=== PATIENT | female | born 1990 | race Caucasian/White ===

== ENCOUNTER 2025-04-02 20:39 | Emergency (ER) | payer OTHER, SELFPAY ==
[2025-04-02 20:44] VITALS: BP 135/80
--- NOTE | 2025-04-02 21:31 | ED.GENMED ---
History of Present Illness
General
Chief Complaint: Back Pain
Source: patient
Exam Limitations: none
Time Seen by Provider: 04/02/25 21:18
History of Present Illness
History of Present Illness:
34-year-old female low back pain bilaterally more the right side x 2 weeks. Much worse last few days. No distal numbness tingling or weakness. No fever or chills. No obvious urinary symptoms. Very positional in nature. Patient has an allergy
to Naprosyn but states she has taken Celebrex in the past and can take this without issues.
Past History
Past History
ED Past Medical History: Asthma and Other (Hyperemesis gravidarum)
ED Past Surgical History: Other (Endoscopy)
Social History
Tobacco: Non-smoker
Alcohol: None
Drug: None
Personal:
Living: with family
Employment: Employed ([employer])
Family History
Family History: Other (n.c)
Review of Systems
Review of Systems
All Other Systems: Not applicable
Constitutional: Denies fever
ABD/GI: Denies abdominal pain or diarrhea
: Denies dysuria or frequency
Phy Exam
Physical Exam
Physical Exam:
GENERAL: Alert and oriented in no apparent distress. Initially sitting in the chair nontoxic. Able to stand and ambulate.
EYE: Orbits normal.
NECK: Supple CARDIAC: Regular rate and rhythm without any obvious murmurs.
LUNGS: Clear breath sounds,normal
ABDOMEN: Soft, mild left-sided tenderness. No rebound or guarding no mass or hernia. No CVA tenderness. No pain with straight leg raising. Able to stand on toes.
NEUROLOGICAL: Alert and oriented , grossly non-focal
SKIN: Warm and dry, no rash or lesion, no discoloration, skin intact.
MUSCULOSKELETAL: No edema,no deformity.Good color able to flex at the hip but with discomfort
PSYCH: Normal and appropriate interaction.
Course
Orders/Labs/Results
Orders:
Orders
04/02/25 21:30
Test Result ONCE
US Abdomen Complete/Upper Urgent
Comment:
Reason For Exam: Left-sided abdominal pain/back pain
04/02/25 21:31
Prednisone [Deltasone] 50 mg PO NOW STA
04/02/25 21:52
HCG, Urine Qualitative Screen Urgent
Date Specimen was Collected: 04/02/25
Time Specimen was Collected: 21:47
Urinalysis Reflex To Culture Urgent
Date Specimen was Collected: 04/02/25
Time Specimen was Collected: 21:47
Urine Microscopic Reflex Cult Urgent
Urine Culture Urgent
RU Source: U
Specimen Description:
Date Specimen was Collected: 04/02/25
Time Specimen was Collected: 21:47
04/02/25 23:56
Nitrofurantoin Monohydrate [Macrobid] 100 mg PO NOW STA
Abnormal Lab Results
04/02/25
21:52
Ur Occult Blood Reflex 2+ A
(Negative)
Urine Nitrite (Reflex) Positive A
(Negative)
Leukocyte Esterase Rfl 3+ A
(Negative)
Urine Bacteria (Reflex) Moderate A
(Negative)
Urine Albumin (Reflex) 1+ A
(Neg - Trace)
Vital Signs
Initial and Last Documented VS:
Initial Vital Signs
Temp Pulse Resp BP Pulse Ox
97.7 F 88 20 135/80 99
04/02/25 20:44 04/02/25 20:44 04/02/25 20:44 04/02/25 20:44 04/02/25 20:44
Last Documented Vital Signs
Temp Pulse Resp BP Pulse Ox
97.7 F 88 20 135/80 99
04/02/25 20:44 04/02/25 20:44 04/02/25 20:44 04/02/25 20:44 04/02/25 21:33
MDM/Problems Addressed
Differential Diagnosis Includes:
Most suspicious for musculoskeletal back pain. Doubt kidney stone kidney infection or acute abdominal process. However will check ultrasound for hydronephrosis also check urine. Patient has been taking Tylenol. She does not want narcotics which
I applaud her for. She however states she is absolutely sure she can take Celebrex and has taken in the past.
*Radiology
Radiology exam reviewed: radiology read reviewed (Negative ultrasound)
*Pulse Oximetry
SaO2: 99
Oxygen Mode of Delivery: Room air
Patient hypoxic: no
*Critical Care Note
Total Time (30-74mins, 75-104mins- exclusive of procedures): Not Applicable
Data Reviewed
Review of Other/Old Records Reveals: Labs and Testing
Update Note
Update Note:
Very low suspicion for UTI. Contaminated urine. However positive leukocyte positive nitrate. Will cover with Macrodantin. Her back pain clinically is very musculoskeletal in nature. No acute weakness in the lower extremities. No incontinence.
Patient is absolutely sure she can take Celebrex.
ED Attending Note
-
Portions of this chart may have been created with voice recognition software.� Occasional wrong word or��sound alike� substitutions may have occurred due to the inherent limitations of voice recognition software.
Discharge Plan
Departure
Patient Disposition: Home (Routine Discharge)
Date of Disposition: 04/02/25
Time of Disposition: 23:57
Patient with high blood pressure during this ER visit?: Yes
Discharge Problem:
Low back pain, Possible UTI
Instructions: Urinary tract infections in adults, Low Back Pain (DC), BLOOD PRESSURE
Prescriptions:
New
celecoxib [Celebrex] 100 mg capsule
100 mg PO DAILY Qty: 14 0RF
nitrofurantoin monohyd/m-cryst [Macrobid] 100 mg capsule
100 mg PO BID 5 Days Qty: 10 0RF
No Action
nitrofurantoin monohyd/m-cryst 100 MG capsule
100 mg PO BID Qty: 14 0RF
ondansetron 4 MG tablet,disintegrating
4 mg PO TIDPRN PRN (Reason: nausea/vomiting) Qty: 16 0RF
albuterol sulfate 1 PUFF HFA aerosol inhaler
2 puff inhalation R Q4HPRN PRN (Reason: shortness of breath) Qty: 1 3RF
prednisone 50 MG tablet
50 mg PO DAILY Qty: 4 0RF
epinephrine [EpiPen] 0.3 MG/0.3/SYRINGE auto-injector
0.3 mg IM ONCE Qty: 1 0RF
methylprednisolone [Medrol (Wiliam)] 4 MG tablets,dose pack
4 tab PO . DIRECT Qty: 1 0RF
Referrals:
Lawanda Romano MD [Family Provider, Family Practice] - Follow up in 2-3 days
Interventions
Interventions:
*Risk Screen - Suicide Last Done: 04/02/25 20:44
*General Assessment Last Done: 04/02/25 20:44
*Neglect/Abuse Screening Last Done: 04/02/25 20:44
*ED- Fall Risk Assessment Last Done: 04/02/25 20:44
*ED COVID-19 Vaccine History Last Done: 04/02/25 20:44
*Nursing Disposition Last Done: 04/03/25 00:11
ED-Musculoskeletal Assessment Last Done: 04/02/25 22:06
Discharge Date and Time
Discharge Date/Time: 04/03/25 00:13
Print Language: PASHTO
[2025-04-02] MEDS: DELTASONE 50 MG PO (21:49)
[2025-04-02 22:01] LABS: HCG, Urine Qualitative Screen Negative
[2025-04-02 22:03] LABS: Urine Character Clear (Clear)
[2025-04-02 22:49] LABS: Urine Red Blood Cell 0-2 /HPF (0-2); Urine Squamous Cell >30 /LPF (Few)
[2025-04-03] MEDS: MACROBID 100 MG PO (00:05)
== END 2025-04-03 00:13 | disposition home or self-care (01) ==
LOC: EMR 20:39
PROVIDERS: EMERGENCY PHYSICIAN Emergency Medicine; FAMILY PHYSICIAN Family Medicine
DX: M54.50 Low back pain, unspecified (principal); J45.909 Unspecified asthma, uncomplicated; Z88.6 Allergy status to analgesic agent
CPT/HCPCS: 99284; 76700; 81003; 81015; 81025; 87077; 87086

== ENCOUNTER 2025-04-26 17:37 | Emergency (ER) | payer OTHER, SELFPAY ==
[2025-04-26 17:39] VITALS: BP 135/87
[2025-04-26 18:19] LABS: Hematocrit 44.4 % (37.0-47.0); Hemoglobin 15.1 g/dL (12.0-16.0); Mean Corp Hgb Conc. 34.0 g/dL (33.0-37.0); Mean Corpuscular Volume 84.9 fL (81.0-99.0); Nucleated Red Blood Cells % 0 %; Platelet Count 200 10^3/uL (130-400); Red Cell Dist. Width 13.2 % (11.5-14.5)
[2025-04-26 18:21] LABS: HCG, Serum Qualitative Screen Negative
[2025-04-26 18:31] LABS: ALT (SGPT) 18 U/L (0-35); AST (SGOT) 19 U/L (14-36); Albumin 5.3 g/dl (3.5-5.0); Alkaline Phosphatase 53 U/L (38-126); Blood Urea Nitrogen 19 mg/dl (7-17); Calcium 9.4 mg/dl (8.4-10.2); Carbon Dioxide 24 mmol/L (22-30); Chloride 107 mmol/L (98-107); Glucose 80 mg/dl (70-99); Lipase 118 U/L (23-300); Potassium 3.7 mmol/L (3.5-5.1); Sodium 141 mmol/L (135-145); Total Protein 8.2 g/dl (6.3-8.2); eGFR > 60.00
[2025-04-26 19:15] LABS: Urine Character Cloudy (Clear)
[2025-04-26 19:48] VITALS: BMI 38.1
[2025-04-26 19:53] VITALS: BP 129/74
[2025-04-26 20:00] VITALS: BP 124/61
[2025-04-26 21:00] VITALS: BP 113/49
[2025-04-26] MEDS: NSS 1000 IV (21:04)
--- NOTE | 2025-04-26 21:43 | ED.GENMED ---
History of Present Illness
General
Chief Complaint: Urinary Symptoms
Source: patient
Exam Limitations: none
Time Seen by Provider: 04/26/25 20:41
Nursing documentation reviewed up to this point in time: agreed with
History of Present Illness
History of Present Illness:
34 y/o F
wit h/o frequent UTI
says she was having back pain and urinar ysymptoms
came here on 04/02 and had UTI, on macrobid, culture meza sensitive
pt says she completed the course and ended up at urgent care for another UTI, says the dysuria and back pain returned, without vomiting and fever.
pt was given another round of macrobid but ultimately felt like she wasn't getting better
so yesterday she had another UA, the culture is still pending but the UA was positive and she was put on doxycycline
she had a dose today and has had nausea/vomiting x 1 and a itchy rash on her R hand and she thimk she is allergic to it
she has not had fever, but feels cold
no persistent vomiting
no h/o kidney stones.
Past History
Past History
ED Past Medical History: Asthma and Other (Hyperemesis gravidarum)
ED Past Surgical History: Other (Endoscopy)
Social History
Tobacco: Non-smoker
Alcohol: None
Drug: None
Personal:
Living: with family
Employment: Employed ([employer])
Family History
Family History: Other (n.c)
Review of Systems
Review of Systems
Allergies reviewed?: Yes
All Other Systems: Not applicable
Phy Exam
Physical Exam
Physical Exam:
GENERAL: Alert, comfortable, well apearoimng
Neck: supple
CARDIAC: Regular rate and rhythm .
LUNGS: Clear breath sounds bilaterally, no acute respiratory distress, no wheezes/rales/rhonchi
ABDOMEN: Soft, normal bowel sounds, nondistended no lower back tendnerses,, no guarding, no rebound, neg wiseman's
back: slight tenderness b/l CVA
NEUROLOGICAL: Alert and oriented, no focal neuro deficits
SKIN: Warm and dry, skin intact. slight redness to the R hand, looks dry; no hives
PSYCH: Normal and appropriate interaction.
Course
Orders/Labs/Results
Orders:
Orders
04/26/25 17:45
Test Result ONCE
04/26/25 17:55
Complete Blood Count/With Diff Urgent
Comprehensive Metabolic Panel Urgent
HCG, Serum Qualitative Screen Urgent
Comment: Notify provider if positive test present
Lipase Urgent
Urinalysis Reflex To Culture Urgent
Date Specimen was Collected: 04/26/25
Time Specimen was Collected: 17:44
Urine Microscopic Reflex Cult Urgent
Urine Culture Urgent
RU Source: U
Specimen Description:
Date Specimen was Collected: 04/26/25
Time Specimen was Collected: 17:44
04/26/25 20:57
CT Abd/Pel (IV only)-DH only Urgent
Comment:
Reason For Exam: back mary, resistant uti, eval pyelo obstruction
0.9% Sodium Chloride 1000 ml [Nss] 1,000 ml IV BOLUS
04/26/25 23:07
CefTRIAXone [Rocephin] 2,000 mg IV NOW STA
04/26/25 23:10
Sterile Water [Sterile Water For Injection] 20 ml .ROUTE .STK-MED
Abnormal Lab Results
04/26/25
17:55
BUN 19 H mg/dl
(7-17)
Total Bilirubin 1.4 H mg/dl
(0.2-1.3)
Albumin 5.3 H g/dl
(3.5-5.0)
Urine Ketones 3+ A
(Negative)
Ur Occult Blood Reflex 4+ A
(Negative)
Leukocyte Esterase Rfl 1+ A
(Negative)
Urine RBC 3-6 A /HPF
(0-2)
Urine Bacteria (Reflex) Many A
(Negative)
Urine Albumin (Reflex) 2+ A
(Neg - Trace)
04/26/25 17:55
04/26/25 17:55
Vital Signs
Initial and Last Documented VS:
Initial Vital Signs
Temp Pulse Resp BP Pulse Ox
36.8 C 80 20 135/87 99
04/26/25 17:39 04/26/25 17:39 04/26/25 17:39 04/26/25 17:39 04/26/25 17:39
Last Documented Vital Signs
Temp Pulse Resp BP Pulse Ox
36.8 C 71 16 117/72 99
04/26/25 17:39 04/26/25 23:37 04/26/25 23:37 04/26/25 23:37 04/26/25 23:37
MDM/Problems Addressed
Differential Diagnosis Includes:
uti, pyelo, kidney stone
MDM/Problems Addressed:
34 y/o F
multiple abx for peristent UTI sxs with back pain
pt is concerned for stone vs. pyelo
she has no fever but some reported vomiting today after taking new abx
she also feels she is getting yeast infection
no oncern for GC/CT
pt looks very comfortable
some mild back pain
mild suprapubic pain
no signs sepsis
wbc normal
urine is still postiive
cr normal
CTAP with contrast: no stones, no pyelo
clincally do not suspect pyelo
d/c the doxy
switch to cefdinir which she has tolerated similar ceph in the past
*Pulse Oximetry
SaO2: 99
Oxygen Mode of Delivery: Room air
Patient hypoxic: no (99)
*Critical Care Note
Total Time (30-74mins, 75-104mins- exclusive of procedures): Not Applicable
ED Attending Note
-
Portions of this chart may have been created with voice recognition software.� Occasional wrong word or��sound alike� substitutions may have occurred due to the inherent limitations of voice recognition software.
Discharge Plan
Departure
Patient Disposition: Home (Routine Discharge)
Date of Disposition: 04/26/25
Time of Disposition: 23:09
Patient with high blood pressure during this ER visit?: No
Condition: Fair
Covid-19: Not Applicable
Discharge Problem:
UTI (urinary tract infection)
Instructions: Urinary Tract Infection, Adult (DC)
Prescriptions:
New
cefdinir 300 mg capsule
300 mg PO BID Qty: 20 0RF
fluconazole 150 mg tablet
150 mg PO ONCE Qty: 1 0RF
No Action
nitrofurantoin monohyd/m-cryst 100 MG capsule
100 mg PO BID Qty: 14 0RF
ondansetron 4 MG tablet,disintegrating
4 mg PO TIDPRN PRN (Reason: nausea/vomiting) Qty: 16 0RF
albuterol sulfate 1 PUFF HFA aerosol inhaler
2 puff inhalation R Q4HPRN PRN (Reason: shortness of breath) Qty: 1 3RF
prednisone 50 MG tablet
50 mg PO DAILY Qty: 4 0RF
epinephrine [EpiPen] 0.3 MG/0.3/SYRINGE auto-injector
0.3 mg IM ONCE Qty: 1 0RF
methylprednisolone [Medrol (Wiliam)] 4 MG tablets,dose pack
4 tab PO . DIRECT Qty: 1 0RF
celecoxib [Celebrex] 100 mg capsule
100 mg PO DAILY Qty: 14 0RF
nitrofurantoin monohyd/m-cryst [Macrobid] 100 mg capsule
100 mg PO BID 5 Days Qty: 10 0RF
Referrals:
Lawanda Romano MD [Family Provider, Family Practice]
Activity Restrictions/Additional Instructions:
Your urine still had some signs of infection but you had no signs of pyelonephritis which is kidney infection or kidney stone. Drink plenty of fluids. Use cefdinir twice a day for 10 days. Take Diflucan for yeast infection symptoms. With all of
these antibiotics you are at risk of getting a bacteria in your gut so make sure to eat a yogurt that has probiotics or take an oral probiotic to protect your stomach. Take Benadryl for rash as needed from the doxycycline. Stop the doxycycline.
Return for any concerns
Interventions
Interventions:
*Risk Screen - Suicide Last Done: 04/26/25 17:39
*General Assessment Last Done: 04/26/25 17:39
*Neglect/Abuse Screening Last Done: 04/26/25 17:39
*ED- Fall Risk Assessment Last Done: 04/26/25 19:49
*ED COVID-19 Vaccine History Last Done: 04/26/25 19:49
*ED Influenza Vaccine History Last Done: 04/26/25 19:49
*Nursing Disposition Last Done: 04/26/25 23:48
ED-Female Genitourinary Assessment Last Done: 04/26/25 19:50
Discharge Date and Time
Discharge Date/Time: 04/26/25 23:51
Print Language: AFGHAN
[2025-04-26 23:37] VITALS: BP 117/72
[2025-04-26] MEDS: ROCEPHIN 2000 MG IV (23:37)
== END 2025-04-26 23:51 | disposition home or self-care (01) ==
LOC: EMR 17:37
PROVIDERS: Emergency Medicine; EMERGENCY PHYSICIAN Emergency Medicine; FAMILY PHYSICIAN Family Medicine
DX: N39.0 Urinary tract infection, site not specified (principal); R11.2 Nausea with vomiting, unspecified; J45.909 Unspecified asthma, uncomplicated
CPT/HCPCS: 96374; 96361; 99284; 74177; 80053; 81003; 81015; 83690; 84703; 85025; 87086; Q9967